=== PATIENT | female | born 1955 | race Caucasian/White ===

== ENCOUNTER → 2017-07-29 | Outpatient (CLI) | payer BC, MEDICAID ==
[~2017-07-29] MED LIST: ALBU17AE3 IH; CETI10CA PO; PROP1TAB77 PO
--- NOTE | 2017-07-31 10:37 | Diagnostic Imaging Report ---
INDICATION: Digital mammogram bilateral screening. COMPARISON: This study was compared to the prior exams of 06/21/2015 and 04/13/2013. PERSONAL HISTORY: At this time, there are no current complaints. TECHNIQUE: Screening digital mammography was performed bilaterally with a Computer Aided Detection (CAD) system. FINDINGS: The fibroglandular tissue in both breasts is heterogeneously dense. This does limit the sensitivity of this exam. Overall, there does not appear to have been any significant change when compared to the prior study. No primary or secondary sign of malignancy is noted. IMPRESSION: There is no evidence for malignancy. ACR BI-RADS Category 1: Negative. Result letter will be mailed to the patient. Note: At least 10% of breast cancer is not imaged by mammography. Dictated by: Dictated on workstation # [id number]
== END ==
LOC: RAD 09:34
PROVIDERS: ATTEND Nurse Practitioner Family
DX: Z12.31 Encounter for screening mammogram for malignant neoplasm of breast (principal)
CPT/HCPCS: 77067